=== PATIENT | female | born 1970 | race African-American/Black ===

== ENCOUNTER 2016-07-30 06:31 | Day surgery (SDC) | payer OTHER ==
[2016-07-29 09:44] VITALS: BMI 27.2
[~2016-07-30 06:31] MED LIST: ceFAZolin SODIUM 1 GM VIAL IVPB ONE
[2016-07-30] MEDS ORDERED: LIDOCAINE HCL 2% (20ML MULTI-DOSE VIAL) NR ONE (07:22)
[2016-07-30] MEDS ORDERED: DESFLURANE GAS 240 ML BOTTLE IH ONE (07:22)
[2016-07-30] MEDS ORDERED: SODIUM CHLORIDE 0.9% P/F 10 ML VIAL IJ ONE (07:28)
[2016-07-30] MEDS ORDERED: KETOROLAC TROMETHAMINE 30 MG/1 ML VIAL ONE (07:28)
[2016-07-30] MEDS ORDERED: ceFAZolin SODIUM 1 GM VIAL ONE (07:28)
[2016-07-30] MEDS ORDERED: DEXAMETHASONE SOD PHOSPHATE 4 MG/1 ML VIAL ONE (07:28)
[2016-07-30] MEDS ORDERED: PROPOFOL 20 ML ONE ×2 (07:29)
[2016-07-30] MEDS ORDERED: ROCURONIUM BROMIDE 50 MG/5 ML VIAL ONE (07:29)
[2016-07-30] MEDS ORDERED: MIDAZOLAM HCL 2 MG/2 ML SINGLE DOSE VIAL ONE (07:30)
[2016-07-30] MEDS ORDERED: ePHEDrine SULFATE 50 MG/1 ML AMPULE ONE (07:35)
[2016-07-30] MEDS ORDERED: ceFAZolin SODIUM 1 GM VIAL IVPB ONE (08:09)
[2016-07-30] MEDS ORDERED: PROMETHAZINE HCL 25 MG/1 ML VIAL IVPUSH PRN (08:31)
[2016-07-30] MEDS ORDERED: oxyCODONE HCL 5 MG TABLET PO PRN (08:31)
[2016-07-30] MEDS ORDERED: ONDANSETRON 4 MG/2 ML VIAL IVPUSH PRN (08:31)
[2016-07-30] MEDS ORDERED: LACTATED RINGERS SOLUTION 1,000 ML IV SCH (08:45)
--- NOTE | 2016-07-30 12:44 | OP ---
Operative Note - Note: Operative Date: 07/30/16 Pre-Operative Diagnosis: Symptomatic Macromastia Operation: Bilateral Reduction Mammaplasty Post-Operative Diagnosis: Same as Pre-op Surgeon: Sherman Kulkarni Dental Assisting Instructor: Jaqueline Ruiz Anesthesia: General Specimens Removed: Breast Tissue: Left 626 gms, Right 642 gms Estimated Blood Loss (mls): 100 Drains & Tubes with Location: [place] Drains- One each breast exiting lateral inframammary wound Operative Report Dictated: Yes
[2016-07-30] MEDS ORDERED: ACETAMINOPHEN 1000 MG/100 ML VIAL (NON FORMULARY) IVPB ONE ×2 (14:50→15:37)
[2016-07-30] MEDS ORDERED: ACETAMINOPHEN INJECTION 100 ML IVPB ONE (14:59)
[2016-07-30] MEDS ORDERED: ONDANSETRON 4 MG/2 ML VIAL ONE (15:16)
--- NOTE | 2016-07-30 15:24 | OP ---
DATE OF OPERATION: 07/30/2016 PREOPERATIVE DIAGNOSIS: Symptomatic macromastia. POSTOPERATIVE DIAGNOSIS: Symptomatic macromastia. PROCEDURE PERFORMED: Bilateral reduction mammoplasty. SURGEON: Sherman Howard MD OIL FIELD PUMPER: KISHORE Hall DESCRIPTION OF PROCEDURE: The patient was on the operating room table in supine position. General anesthesia was administered by the anesthesiologist. The area of the chest was prepped and draped in the usual sterile fashion. The breasts were photographed and marked 1 day prior to surgery, and these markings were now used as a guide for the procedure. The right breast was addressed first. A tourniquet was placed about the base of the right breast, and a 52-mm cookie cutter was used to outline a circular incision about the right nipple areolar complex. This incision was made using a No. 15 scalpel blade as were all other incisions as marked. An inferiorly based pedicle was designed approximately 8 cm in width and extending superiorly about 5 cm superior to the nipple to preserve moderate superior fullness. The pedicle was deepithelialized, and electrocautery was used to create both medial, lateral, and superior borders of this pedicle. Excess tissue was removed in the medial, lateral, and superior quadrants, which on the right side measured 642 g. Hemostasis was achieved with electrocautery, and a 3/4-inch Cyndi drain was laid around the superior end of the pedicle and exiting what will be the lateral extent of the inframammary incision. Wounds were then closed in layered fashion. Deepest was closed with No. 3-0 and 4-0 Biosyn suture in an interrupted buried fashion, and a deep dermal layer of 4-0 V-Lock 90 was then used. The V-Lock suture was left loose around the [place] drain as it exited from the inframammary wound laterally and will be tightened postoperatively when the drain is removed. A similar procedure was performed on the left breast where the total resection was 626 g. All wounds were then further secured with 1/2-inch Steri-Strips, and sterile dressings were applied and secured with a surgical bra. The patient was then awoken from anesthesia without any difficulty and taken from the operating room to the recovery room in satisfactory condition having tolerated the procedure well. SHERMAN HOWARD M.D. /[id number]
--- NOTE | 2016-07-30 15:35 | SURG ---
Surgery Oil Refinery Operator Note Oil Refinery Operator: Jaqueline Ruiz PA-C (t) Date of Service: 07/30/16 Diagnosis: Symptomatic Macromastia Procedure: Symptomatic Macromastia Bilateral Reduction Mammaplasty I was present for the entirety of the operative procedure. For further detail, please refer to operative report. Visit type - Case Type Case Type: Scheduled Admission - Emergency Emergency Visit: No - New patient This patient is new to me today: Yes Date on this admission: 07/30/16 - Critical Care Critical Care patient: No
[2016-07-30] MEDS ORDERED: ONDANSETRON 4 MG/2 ML VIAL IVPUSH ONE (15:37)
[2016-07-30 16:26] VITALS: TEMP 98.8
[2016-07-30 17:52] VITALS: BP 120/55; PULSE 83
--- NOTE | 2016-08-03 12:38 | PATH ---
Surgical Pathology Report Patient Name: MATILDA BTUTS [facility]. Rec. #: [id number] /Age/Gender: 1970 (Age: 46) / F Account: [id number] Location: [facility] SURGICAL Taken: 07/30/2016 Received: 07/30/2016 Reported: 08/03/2016 Physicians: Sherman Kulkarni M.D. Specimen(s) Received A: RIGHT BREAST TISSUE B: LEFT BREAST TISSUE Clinical History Macromastia Final Diagnosis A. BREAST, RIGHT, REDUCTION MAMMOPLASTY: BENIGN BREAST TISSUE WITH NON-PROLIFERATIVE FIBROCYSTIC CHANGE. BENIGN SKIN. B. BREAST, LEFT, REDUCTION MAMMOPLASTY: BENIGN BREAST TISSUE WITH NON-PROLIFERATIVE FIBROCYSTIC CHANGE. BENIGN SKIN. Electronically Signed Antonio Victor M.D. Gross Description A. Received in formalin, labeled "right breast tissue" is a 663 g, 21.0 x 19.5 x 6.0 cm aggregate of multiple lopez-yellow, irregular, unoriented portions of fibroadipose tissue and brown, unremarkable skin. Sectioning reveals foci of white fibrous tissue. No definitive masses are identified. Continuity Reader sections are submitted in 2 cassettes. B. Received in formalin, labeled "left breast tissue" is a 659 g, 23.0 x 17.0 x 6.0 cm aggregate of multiple lopez-yellow, irregular, unoriented portions of fibroadipose tissue and brown, unremarkable skin. Sectioning reveals foci of white fibrous tissue. No definitive masses are identified. Continuity Reader sections are submitted in 3 cassettes. 07/31/2016 saudi07/31/2016
== END 2016-07-30 17:52 | disposition home or self-care (01) ==
LOC: JASU-SURG 06:31
PROVIDERS: ATTEND Plastic Surgery
PROC: 0HBV0ZZ Excision of Bilateral Breast, Open Approach (ICD-10-PCS; principal; 2016-07-30 08:00)
DX: N62 Hypertrophy of breast (principal)
CPT/HCPCS: 84703; 88305-TC; 94760

== ENCOUNTER 2018-06-14 10:49 | Emergency (ER) | payer OTHER ==
[2018-06-14 11:00] VITALS: PULSE 61; BMI 23.8
--- NOTE | 2018-06-14 11:12 | PDOC ---
History of Present Illness - General Chief Complaint: Chest Pain Stated Complaint: CHEST PAIN Time Seen by Provider: 06/14/18 11:11 History Source: Patient Exam Limitations: No Limitations - History of Present Illness Initial Comments: 06/14/18 11:45 48 year old female with PMH HLD presented to ED for chest pain since 0800 today. She stated her pain is located substernally, radiating to her back, constant, pressure like, no aggravating or alleviating factors. She stated her pain began while at rest sitting at her desk. She admitted to feeling her heart racing and SOB. She denied fever, chills, nausea, vomiting, diarrhea, abdominal pain, syncope, lightheadedness. Pt denied Hx DVT/PE, hormone use, surgery <4 weeks, bed rest>3 days, active malignancy <6 months, travel>5 hours, calf swelling. Allergies: NKDA Past surgical history: , bilateral breast reduction Past History - Past Medical History Allergies/Adverse Reactions: Allergies Allergy/AdvReac Type Severity Reaction Status Date / Time No Known Allergies Allergy Verified 06/14/18 10:57 Home Medications: Ambulatory Orders Ketorolac Tromethamine 10 mg PO PRN PRN 06/14/18 Methocarbamol [Robaxin -] 500 mg PO BID 06/14/18 Anemia: No Asthma: No Cancer: No Cardiac Disorders: No CVA: No COPD: No CHF: No Dementia: No Diabetes: No GI Disorders: No Disorders: No HTN: No Hypercholesterolemia: Yes Liver Disease: No Seizures: No Thyroid Disease: No - Immunization History Immunization Up to Date: Yes - Suicide/Smoking/Psychosocial Hx Smoking History: Never smoked Hx Alcohol Use: No Drug/Substance Use Hx: No Substance Use Type: None Review of Systems - Review of Systems Able to Perform ROS?: Yes Comments:: 06/14/18 11:47 General: denied fever, chills, night sweats, generalized weakness. HEENT: denied sore throat, rhinorrhea, ear pain. Heart: admitted to chest pain, palpitations. denied syncope, lower extremity swelling, diaphoresis. Respiratory: admitted to shortness of breath. denied cough, sputum production, hemoptysis. Abdomen: denied abdominal pain, nausea, vomiting, diarrhea, constipation, blood in stool. : denied dysuria, increased urinary frequency, hematuria, urinary incontinence , flank pain. Back: denied back pain. Musculoskeletal: denied joint pain, muscle pain, joint swelling. Neurological: denied headache, dizziness, numbness, tingling, weakness. Skin: denied rash, laceration, abrasion. *Physical Exam - Vital Signs Last Vital Signs Temp Pulse Resp BP Pulse Ox 97.8 F 61 18 126/73 100 06/14/18 10:58 06/14/18 10:58 06/14/18 10:58 06/14/18 10:58 06/14/18 10:58 - Physical Exam Comments: 06/14/18 11:48 Constitutional: Well-nourished, Well-developed, appearing stated age. HEENT: head is normocephalic, atraumatic. EOMI. PERRLA. Neck: supple. Full ROM. Heart: regular rhythm. no murmurs, rubs or gallops. Lungs: clear to auscultation bilaterally. no crackles, rhonchi or wheezing. no stridor. Abdomen: soft, nontender. normal bowel sounds. no rebound, guarding, masses. Extremities: Peripheral pulses intact and equal. No lower extremity edema. Neurological: CN 2-12 grossly intact. Moves all four extremities. Psych: awake, alert, oriented x3. Follows commands. Answers questions appropriately. Moderate Sedation - Procedure Monitoring Vital Signs: Procedure Monitoring Vital Signs Temperature 97.8 F 06/14/18 10:58 Pulse Rate 61 06/14/18 10:58 Respiratory Rate 18 06/14/18 10:58 Blood Pressure 126/73 06/14/18 10:58 O2 Sat by Pulse Oximetry (%) 100 06/14/18 10:58 Procedures - Bedside Ultrasound Bedside Ultrasound: Cardiac Remarks: 06/16/18 07:27 Bedside cardiac US performed - Parasternal long: no pericardial effusion, no aortic dilation, no RV dilation. - Parasternal short: good squeeze. No septal bowing. - Apical: no RV dilation. No septal bowing. no pericardial effusion. - Subxiphoid: no percardial effusion. Good squeeze. ED Treatment Course - LABORATORY CBC & Chemistry Diagram: 06/14/18 11:23 06/14/18 11:23 Medical Decision Making - Medical Decision Making 06/14/18 11:48 48 year old female with PMH HLD presented to ED for chest pain since 0800. PERC =0. WELLS = 0. Initial Vital Signs Temp Pulse Resp BP Pulse Ox 97.8 F 61 18 126/73 100 06/14/18 10:58 06/14/18 10:58 06/14/18 10:58 06/14/18 10:58 06/14/18 10:58 Afebrile. No tachycardia. No tachypnea. No hypotension or hypertension. No hypoxia on room air. Left arm BP: 118/72 Right arm BP: 126/73 EKG performed at 1055: rate 60, regular rhythm, normal axis, normal intervals, flipped T in V2, flat T in aVL, otherwise no ST changes. Low risk chest pain, HEART = 2 Pending basic labs, two troponins, second EKG, CXR. Bedside cardiac US performed - Parasternal long: no pericardial effusion, no aortic dilation, no RV dilation. - Parasternal short: good squeeze. No septal bowing. - Apical: no RV dilation. No septal bowing. no pericardial effusion. - Subxiphoid: no percardial effusion. Good squeeze. Low likelihood of PE, PERC and WELLS = 0 Low likelihood of aortic dissection/aneurysum, normal BP in both arms, sitting comfortably, no aortic root dilation on beside cardiac US. 06/14/18 12:01 CBC WBC 6.7 K/mm3 (4.0-10.0) 06/14/18 11:23 RBC 4.17 M/mm3 (3.60-5.2) 06/14/18 11:23 Hgb 13.7 GM/dL (10.7-15.3) 06/14/18 11:23 Hct 38.9 % (32.4-45.2) 06/14/18 11:23 MCV 93.2 fl (80-96) 06/14/18 11:23 MCH 32.8 pg (25.7-33.7) 06/14/18 11:23 MCHC 35.2 g/dl (32.0-36.0) 06/14/18 11:23 RDW 12.9 % (11.6-15.6) 06/14/18 11:23 Plt Count 216 K/MM3 (134-434) 06/14/18 11:23 MPV 9.4 fl (7.5-11.1) 06/14/18 11:23 Absolute Neuts (auto) 3.7 K/mm3 (1.5-8.0) 06/14/18 11:23 Neutrophils % 54.9 % (42.8-82.8) 06/14/18 11:23 Lymphocytes % 37.0 % (8-40) 06/14/18 11:23 Monocytes % 6.3 % (3.8-10.2) 06/14/18 11:23 Eosinophils % 1.4 % (0-4.5) 06/14/18 11:23 Basophils % 0.4 % (0-2.0) 06/14/18 11:23 Nucleated RBC % 0 % (0-0) 06/14/18 11:23 No leukocytosis. No anemia. 06/14/18 12:18 CMP Sodium 139 mmol/L (136-145) 06/14/18 11:23 Potassium 3.6 mmol/L (3.5-5.1) 06/14/18 11:23 Chloride 105 mmol/L (98-107) 06/14/18 11:23 Carbon Dioxide 26 mmol/L (21-32) 06/14/18 11:23 Anion Gap 9 MMOL/L (8-16) 06/14/18 11:23 BUN 16 mg/dL (7-18) 06/14/18 11:23 Creatinine 0.8 mg/dL (0.55-1.3) 06/14/18 11:23 Creat Clearance w eGFR > 60 (>60) 06/14/18 11:23 Random Glucose 86 mg/dL (74-106) 06/14/18 11:23 Calcium 9.1 mg/dL (8.5-10.1) 06/14/18 11:23 Magnesium 2.1 mg/dL (1.8-2.4) 06/14/18 11:23 Creatine Kinase 133 IU/L (26-192) 06/14/18 11:23 Troponin I < 0.02 ng/ml (0.00-0.05) 06/14/18 11:23 B-Natriuretic Peptide 51.8 pg/ml (5-125) 06/14/18 11:23 TSH 1.14 uIU/ml (0.358-3.74) 06/14/18 11:23 Beta HCG, Quant 11.9 mIU/ml 06/14/18 11:23 No electrolyte abnormalities. No CALOS. Normal cardiac enzymes - Will repeat. Normal TSH Beta 11.9 - Pt menopausal x1 year - Pt informed of result and need to follow up with OBGYN 06/14/18 13:03 Pt reassessed, pain improving. 06/14/18 14:25 Repeat troponin and EKG ordered. Pending official CXR report, by my read: no widened mediastium, no cardiomegaly , no infiltrate, no pneumothorax. 06/14/18 15:22 Official cxr report: no acute pathology 06/14/18 15:30 Second troponin negative. Second EKG: rate 58, regular rhythm, normal axis, normal intervals, flipped T in V2, flat T in aVL. similar to prior. Pt to be discharged with instructions for PCP follow up. *DC/Admit/Observation/Transfer Diagnosis at time of Disposition: Chest pain - Discharge Dispostion Disposition: HOME Condition at time of disposition: Stable Decision to Admit order: No - Referrals Referrals: Eleno Amador MD [Primary Care Provider] - - Patient Instructions Additional Instructions: You were seen today for chest pain. Your lab work was normal, other than an increased beta-HCG level (11.2). Like we discussed, there is a possibilty that this increased hormone level could be secreted by a tumor. Please follow up with you primary care doctor or OBGYN to have this level repeated and followed. Your EKGs were normal. Your chest X-ray was normal. Take tylenol and/or ibuprofen over the counter for your pain, take as advised on labels. Follow up with your primary care doctor in 1-2 days, tell them you were seen in the Emergency Department. Your care is not complete until you follow up. Return to the Emergency Department for chest pain, increasing pain, vomiting, radiation of pain to your arm or neck, shortness of breath, palpitations or any other, new , worsening or concerning symptoms. - Post Discharge Activity Forms/Work/School Notes: Back to Work
[2018-06-14 11:34] LABS: BASO % 0.4 % (0-2.0); EOS % 1.4 % (0-4.5); HEMATOCRIT 38.9 % (32.4-45.2); HEMOGLOBIN 13.7 GM/dL (10.7-15.3); MCH 32.8 pg (25.7-33.7); MCHC 35.2 g/dl (32.0-36.0); MEAN CELL VOLUME 93.2 fl (80-96); MEAN PLT VOLUME 9.4 fl (7.5-11.1); MONO % 6.3 % (3.8-10.2); NEUT % 54.9 % (42.8-82.8); PLATELET COUNT 216 K/MM3 (134-434); RBC 4.17 M/mm3 (3.60-5.2); RDW 12.9 % (11.6-15.6); WHITE BLOOD COUNT 6.7 K/mm3 (4.0-10.0)
[2018-06-14] MEDS ORDERED: ASPIRIN 81 MG CHEWABLE TABLETS PO ONE (11:47)
[2018-06-14 11:58] LABS: INR 1.07 (0.83-1.09); PROTHROMBIN TIME (PATIENT) 12.6 SEC (9.7-13.0)
[2018-06-14 12:13] LABS: ANION GAP 9 MMOL/L (8-16); BLOOD UREA NITROGEN 16 mg/dL (7-18); CALCIUM 9.1 mg/dL (8.5-10.1); CHLORIDE 105 mmol/L (98-107); CO2 26 mmol/L (21-32); CREATININE 0.8 mg/dL (0.55-1.3); GLUCOSE,RANDOM 86 mg/dL (74-106); MAGNESIUM 2.1 mg/dL (1.8-2.4); N-TERMINAL BNP 51.8 pg/ml (5-125); POTASSIUM 3.6 mmol/L (3.5-5.1); SODIUM 139 mmol/L (136-145)
--- NOTE | 2018-06-14 13:27 | PDOC ---
Attending Attestation - Resident Resident Name: Amanda Gray - ED Attending Attestation I have performed the following: I have examined & evaluated the patient, The case was reviewed & discussed with the resident, I agree w/resident's findings & plan - HPI HPI: 06/14/18 12:38 48-year-old female history of high cholesterol presents with episode of chest pain today. Patient been in her usual state of normal health, while at work and under no stress developed a substernal chest pain that radiated to her back, associated with some shortness of breath but no pleuritic complements, no associated fevers or chills or cough or palpitations. No exercise limitations at baseline, no PE risk factors, had a similar chest pain episode about 5 or 6 years ago that was worked up in a hospital with echo and stress test and was unremarkable, has been chest pain-free since then until today. - Physicial Exam PE: 06/14/18 13:44 Vital signs stable thin and well-appearing, speaking full sentences in no respiratory distress No reproducible chest tenderness, heart is regular without murmurs, lungs are clear No calf tenderness or edema - Medical Decision Making 06/14/18 13:44 48-year-old female with history of high cholesterol presents with atypical chest pain at rest that began earlier today, constant without other red flags on history or physical exam. Similar syndrome in the past was worked up with negative stress test, vital signs are normal. EKG shows no acute pathology Low risk for ACS with HEART 2 labs including trop x2 cxr reassess Heart Score/ECG Review - History History: Slightly suspicious - Electrocardiogram EKG: Normal - Age Age: 45-65 - Risk Factors Based on the list above the patient has:: 1-2 risk factors - Troponin Troponin: </= normal limit - Score Heart Score - Total: 2 #1 ECG reviewed & interpreted by me at: 10:55 General ECG Interpretation: Sinus Rhythm, Normal Rate (60), Normal Intervals ( qtc 390), No acute ischemic changes #2 ECG reviewed & interpreted by me at: 14:47 General ECG Interpretation: Sinus Rhythm, Normal Rate (58), Normal Intervals, No acute ischemic changes
[2018-06-14] MEDS ORDERED: ASPIRIN 81 MG CHEWABLE TABLETS ONE (13:41)
[2018-06-14 13:49] VITALS: BP 128/69; TEMP 97.9
--- NOTE | 2018-06-15 12:45 | EKG ---
Test Reason : Blood Pressure : / mmHG Vent. Rate : 060 BPM Atrial Rate : 060 BPM P-R Int : 152 ms QRS Dur : 078 ms QT Int : 390 ms P-R-T Axes : 049 063 060 degrees QTc Int : 390 ms NORMAL SINUS RHYTHM NORMAL ECG NO PREVIOUS ECGS AVAILABLE Confirmed by CARMENCITA SANDOVAL, ANUPAM ([id number]) on 06/15/2018 12:45:27 PM Referred By: Confirmed By:ANUPAM TSE MD
--- NOTE | 2018-06-15 13:01 | EKG ---
Test Reason : Blood Pressure : / mmHG Vent. Rate : 058 BPM Atrial Rate : 058 BPM P-R Int : 144 ms QRS Dur : 078 ms QT Int : 406 ms P-R-T Axes : 063 069 059 degrees QTc Int : 398 ms SINUS BRADYCARDIA OTHERWISE NORMAL ECG WHEN COMPARED WITH ECG OF 14-JUN-2018 10:55, NO SIGNIFICANT CHANGE WAS FOUND Confirmed by ANUPAM TSE MD ([id number]) on 06/15/2018 1:00:01 PM Referred By: Confirmed By:ANUPAM TSE MD
== END 2018-06-14 15:43 | disposition home or self-care (01) ==
LOC: JER 10:49
DX: R07.9 Chest pain, unspecified (principal); E78.5 Hyperlipidemia, unspecified
CPT/HCPCS: 36415; 71046-TC-FY; 80048; 82550; 83735; 83880; 84443; 84484; 84702; 85025; 85610; 85730; 86850; 86900; 86901; 93005; 93010; 99285-25